=== PATIENT | female | born 1995 | race Two or more races ===

== ENCOUNTER 2017-04-09 21:03 | Outpatient (CLI) | payer OTHER | END 2017-04-09 21:04 | disposition critical access hospital (66) | LOC: EMS 21:03 | PROVIDERS: ATTEND Surgery | DX: R56.9 Unspecified convulsions (principal) ==

== ENCOUNTER 2017-04-09 21:26 | Emergency (ER) | payer OTHER ==
[2017-04-09 22:15] LABS: MUDS CUTOFF CONCENTRATIONS CUTOFF CONC BELOW:
[2017-04-09 22:17] LABS: BILIRUBIN,URINE NEGATIVE (NEGATIVE); GLUCOSE, URINE (UA) NEGATIVE (NEGATIVE); KETONES,URINE (UA) NEGATIVE (NEGATIVE); LEUKOCYTE ESTERASE, URINE NEGATIVE (NEGATIVE); NITRITE,URINE NEGATIVE (NEGATIVE); OCCULT BLOOD,URINE NEGATIVE (NEGATIVE); PROTEIN,URINE NEGATIVE (NEGATIVE); UROBILINOGEN,URINE 0.2 (NORMAL) E.U./dL (NORMAL)
[2017-04-09 22:21] LABS: CLARITY,URINE CLEAR (CLEAR); HCG UR QUAL NEGATIVE
[2017-04-09 22:29] LABS: AMPHETAMINE SCREEN,URINE POSITIVE (NEGATIVE); BENZODIAZEPINES SCREEN, URINE NEGATIVE (NEGATIVE); COCAINE SCREEN URINE NEGATIVE (NEGATIVE); METHADONE SCREEN, URINE NEGATIVE (NEGATIVE); METHAMPHETAMINES SCREEN, URINE NEGATIVE (NEGATIVE); OPIATE SCREEN, URINE NEGATIVE (NEGATIVE); OXYCODONE SCREEN, URINE NEGATIVE (NEGATIVE); PROPOXYPHENE SCREEN, URINE NEGATIVE (NEGATIVE); TRICYCLIC ANTIDEPRESSANT,URINE NEGATIVE (NEGATIVE)
[2017-04-09 22:42] LABS: BASOPHILS # (AUTO) 0.1 10^3/uL (0.0-0.1); BASOPHILS % (AUTO) 0.7 %; EOSINOPHILS # (AUTO) 0.1 10^3/uL (0.0-0.7); EOSINOPHILS % (AUTO) 1.5 %; HGB - HEMOGLOBIN 12.4 g/dL (12.0-16.0); LYMPHOCYTES # (AUTO) 2.9 10^3/uL (1.5-3.5); LYMPHOCYTES % (AUTO) 32.7 %; MEAN CORPUSCULAR HEMOGLOBIN 27.4 pg (27.0-31.0); MEAN CORPUSCULAR HGB CONC 32.1 g/dL (32.0-36.0); MEAN CORPUSCULAR VOLUME 85.1 fL (81.0-99.0); MEAN PLATELET VOLUME 9.6 fL (7.9-10.8); MONOCYTES # (AUTO) 0.6 10^3/uL (0.0-1.0); MONOCYTES % (AUTO) 6.4 %; NEUTROPHILS # (AUTO) 5.3 10^3/uL (1.5-6.6); NEUTROPHILS % (AUTO) 58.7 %; PLT - PLATELET COUNT 279 10^3/uL (130-450); RED BLOOD COUNT 4.52 10^6/uL (4.20-5.40); RED CELL DISTRIBUTION WIDTH 15.4 % (12.0-15.0)
[2017-04-09 22:56] LABS: ALBUMIN 4.8 g/dL (3.2-5.5); ALBUMIN/GLOBULIN RATIO 1.2 (1.0-2.2); BILIRUBIN,TOTAL 0.5 mg/dL (0.2-1.0); CALCIUM 9.6 mg/dL (8.5-10.3); CREATININE 0.7 mg/dL (0.4-1.0); TOTAL PROTEIN 8.8 g/dL (6.7-8.2)
[2017-04-10] MEDS ORDERED: PHENYTOIN INJ 1,000 MG in SODIUM CHLORIDE 0.9% 100ML 100 ML IV STA (00:07)
[2017-04-10] MEDS ORDERED: ONDANSETRON ODT 4 MG TABLET TL STA (01:04)
[2017-04-10] MEDS ORDERED: PHENYTOIN ER 100 MG CAPSULE PO STA ×2 (01:04→01:15)
--- NOTE | 2017-04-10 01:16 | ED Physician Documentation ---
PD HPI SEIZURE - Stated complaint Stated Complaint: SEIZURES - Chief complaint Chief Complaint: Neuro - History obtained from History obtained from: Patient, EMS - History of Present Illness Timing - onset: Today Witnessed: Witnessed, Unwitnessed Number of seizures: Multiple Description of seizure activity: Generalized, Tonic clonic Injury during seizure: No: Head injury, Bit tongue Associated symptoms: No: Headache, Vision changes Contributing factors: Off meds Similar symptoms before: Work up / diagnostics, Treatment Recently seen: Not recently seen - Additional information Additional information: Patient is a 22 year old female with a 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 since that time she has been on multiple anti epileptic medications but patient states that none of them really worked for her. Patient states that she had been working with neurologists in [place] and recently [place], but she just moved up here and does not have a doctor or neurologist. Patient states that she stopped taking her meds during her and has not been on them for a long time. Patient states that today she has had three different seizures. patient states that they were only witnessed by her children so she doesn't know exactly how long the lasted or if they were generalized or focal. patient states that she just woke up each time a bit confused. patient states that she has been under a lot of stress lately and that her recently asked for a divorce. Review of Systems Constitutional: denies: Fever, Chills Eyes: denies: Decreased vision, Photophobia Ears: denies: Ear pain, Drainage/discharge Throat: denies: Dental pain / toothache, Oral lesions / sores Cardiac: denies: Chest pain / pressure Respiratory: reports: Reviewed and negative GI: reports: Reviewed and negative : reports: Reviewed and negative Skin: denies: Abrasion (s), Laceration (s), Bite / sting Musculoskeletal: denies: Neck pain, Back pain, Extremity pain Neurologic: reports: Seizure Psychiatric: reports: Reviewed and negative Endocrine: reports: Reviewed and negative PD PAST MEDICAL HISTORY - Past Medical History Past Medical History: Yes Neuro: Headache/migraine, Seizure disorder 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: Ovarian cysts, Miscarriage(s) Psych: Depression, Anxiety, Bipolar disorder, Panic attacks, ADD/ADHD, Obsessive compulsive disorder, Eating disorder - Past Surgical History Past Surgical History: Yes Neuro: Other - Present Medications Home Medications: Ambulatory Orders Medication Instructions Recorded Confirmed Dextroamphetamine/Amphetamine 30 mg PO DAILY PM 04/09/17 04/09/17 [Adderall Xr 30 mg Capsule] Ibuprofen 800 mg PO PRN 04/09/17 Phenytoin [Dilantin] 100 mg PO TID #30 capsule 04/10/17 - Allergies Allergies/Adverse Reactions: Allergies Allergy/AdvReac Type Severity Reaction Status Date / Time tramadol Allergy Severe Anaphylaxis Verified 04/09/17 21:51 ketorolac [From Toradol] Allergy Intermediate Hives Verified 04/09/17 21:53 trazodone [From Desyrel] Allergy Intermediate Hives Verified 04/09/17 21:53 - Social History Does the pt smoke?: No Smoking Status: Never smoker Does the pt drink ETOH?: Yes ETOH Use: Wine Does the pt have substance abuse?: No PD ED PE NORMAL - Vitals Vital signs reviewed: Yes - General General: Alert and oriented X 3, No acute distress, Well developed/nourished - HEENT HEENT: Atraumatic, PERRL, Moist mucous membranes - Neck Neck: Supple, no meningeal sign - Cardiac Cardiac: RRR, No murmur - Respiratory Respiratory: No respiratory distress - Abdomen Abdomen: Soft, Non tender, Non distended - Derm Derm: Normal color, Warm and dry, No rash - Extremities Extremities: No deformity, Normal ROM s pain, No edema, No calf tenderness / cord - Neuro Neuro: Alert and oriented X 3, No motor deficit, No sensory deficit, Normal speech Eye Opening: Spontaneous Motor: Obeys Commands Verbal: Oriented GCS Score: 15 - Psych Psych: Normal mood Results - Vitals Vitals: Vital Signs - 24 hr 04/09/17 04/09/17 04/10/17 21:44 23:10 00:34 Temperature 36.2 C L Heart Rate 68 74 63 Respiratory 16 16 16 Rate Blood Pressure 116/73 119/79 123/73 O2 Saturation 100 100 100 04/10/17 04/10/17 01:00 01:55 Temperature 36.5 C Heart Rate 76 64 Respiratory 16 16 Rate Blood Pressure 126/87 H 135/73 H O2 Saturation 100 99 Oxygen O2 Source Room air - Labs Labs: Laboratory Tests 04/09/17 04/09/17 04/09/17 22:12 22:12 22:28 WBC 9.0 RBC 4.52 Hgb 12.4 Hct 38.5 MCV 85.1 MCH 27.4 MCHC 32.1 RDW 15.4 H Plt Count 279 MPV 9.6 Neut # 5.3 Lymph # 2.9 [place] # 0.6 Eos # 0.1 Baso # 0.1 Absolute Nucleated RBC 0.00 Nucleated RBC % 0.0 Sodium Potassium Chloride Carbon Dioxide Anion Gap BUN Creatinine Estimated GFR (MDRD) Glucose Calcium Total Bilirubin AST ALT Alkaline Phosphatase Total Protein Albumin Globulin Albumin/Globulin Ratio Lipase Urine Color YELLOW Urine Clarity CLEAR Urine pH 6.0 Ur Specific [place] 1.025 Urine Protein NEGATIVE Urine Glucose (UA) NEGATIVE Urine Ketones NEGATIVE Urine Occult Blood NEGATIVE Urine Nitrite NEGATIVE Urine Bilirubin NEGATIVE Urine Urobilinogen 0.2 (NORMAL) Ur Leukocyte Esterase NEGATIVE Ur Microscopic Review NOT INDICATED Urine Culture Comments NOT INDICATED Urine HCG, Qual NEGATIVE Urine Opiates Screen NEGATIVE Ur Oxycodone Screen NEGATIVE Urine Methadone Screen NEGATIVE Ur Propoxyphene Screen NEGATIVE Ur Barbiturates Screen NEGATIVE Ur Tricyclics Screen NEGATIVE Ur Phencyclidine Scrn NEGATIVE Ur Amphetamine Screen POSITIVE H U Methamphetamines Scrn NEGATIVE U Benzodiazepines Scrn NEGATIVE Urine Cocaine Screen NEGATIVE U Cannabinoids Screen NEGATIVE 04/09/17 22:28 WBC RBC Hgb Hct MCV MCH MCHC RDW Plt Count MPV Neut # Lymph # [place] # Eos # Baso # Absolute Nucleated RBC Nucleated RBC % Sodium 140 Potassium 3.7 Chloride 104 Carbon Dioxide 26 Anion Gap 10.0 BUN 11 Creatinine 0.7 Estimated GFR (MDRD) 103 Glucose 82 Calcium 9.6 Total Bilirubin 0.5 AST 25 ALT 27 Alkaline Phosphatase 64 Total Protein 8.8 H Albumin 4.8 Globulin 4.0 Albumin/Globulin Ratio 1.2 Lipase 27 Urine Color Urine Clarity Urine pH Ur Specific [place] Urine Protein Urine Glucose (UA) Urine Ketones Urine Occult Blood Urine Nitrite Urine Bilirubin Urine Urobilinogen Ur Leukocyte Esterase Ur Microscopic Review Urine Culture Comments Urine HCG, Qual Urine Opiates Screen Ur Oxycodone Screen Urine Methadone Screen Ur Propoxyphene Screen Ur Barbiturates Screen Ur Tricyclics Screen Ur Phencyclidine Scrn Ur Amphetamine Screen U Methamphetamines Scrn U Benzodiazepines Scrn Urine Cocaine Screen U Cannabinoids Screen PD MEDICAL DECISION MAKING - ED course Complexity details: reviewed old records, reviewed results, re-evaluated patient , considered differential, d/w patient, d/w client service consultant ED course: Patient was seen and examined at bedside. patient was well appearing and in no acute distress. labs were drawn and urine was collected. [facility] neurology was contacted. Case was discussed with them. Since patient had had adverse outcomes with keppra it was decided to load the patient with dilantin and start the patient on daily meds until she could follow up with her pmd/neurologist. IV bolus was started but patient stated it was uncomfortable so it was switched to oral, in two split doses of 500mg. patient tolerated it well with no vomiting. patient required no further inpatient work up at this time and was stable for discharge with outpatient follow up. Departure - Departure Disposition: Home, Self Care Clinical Impression: Seizure Condition: Good Instructions: ED Seizure Recurrent Follow-Up: epilepsy,clinic [Other] - Within 3 Days Prescriptions: Phenytoin [Dilantin] 100 mg PO TID #30 capsule Comments: Your symptoms today are being caused by a seizure. You have been loaded on dilantin today and will need to take 100mg three times a day. You will need to call your doctor tomorrow to schedule a follow up appointment with neurologist out here in [place]. You will need to have your dilantin level checked within three weeks. It might not be the best medicine for you so it is imperative that you seek follow up care. The number is listed for the epilepsy clinic, but you should call your doctor on tuesday to schedule a follow up appointment. You may return to the emergency department at any time for new, worsening or uncontrollable symptoms. Discharge Date/Time: 04/10/17 01:57
[2017-04-10 02:49] VITALS: BP 135/73
== END 2017-04-10 01:57 | disposition home or self-care (01) ==
LOC: ED 21:26
DX: G40.909 Epilepsy, unspecified, not intractable, without status epilepticus (principal)
CPT/HCPCS: 36415; 80053; 80306; 81003; 81025; 83690; 85025; 96365; 99284; A9270; Q0162; 81001; 87086

== ENCOUNTER 2017-10-11 14:40 | Emergency (ER) | payer OTHER ==
[2017-10-11 15:19] LABS: BILIRUBIN,URINE NEGATIVE (NEGATIVE); GLUCOSE, URINE (UA) NEGATIVE (NEGATIVE); KETONES,URINE (UA) NEGATIVE (NEGATIVE); LEUKOCYTE ESTERASE, URINE NEGATIVE (NEGATIVE); NITRITE,URINE NEGATIVE (NEGATIVE); OCCULT BLOOD,URINE NEGATIVE (NEGATIVE); PROTEIN,URINE NEGATIVE (NEGATIVE); UROBILINOGEN,URINE 0.2 (NORMAL) E.U./dL (NORMAL)
[2017-10-11 15:24] LABS: CLARITY,URINE CLEAR (CLEAR)
[2017-10-11 15:25] LABS: HCG UR QUAL POSITIVE
--- NOTE | 2017-10-11 17:04 | ED Physician Documentation ---
PD HPI BACK PAIN - Stated complaint Stated Complaint: BACK PX - Chief complaint Chief Complaint: Back Pain - History obtained from History obtained from: Patient - History of Present Illness Timing - duration: Days Timing - details: Gradual onset, Still present, Waxing and waning Location: Lower, Right, Left Quality: Pain, Spasm, Aching Associated symptoms: No: Fever, Weakness, Numbness, Incontinent of urine Improves with: Rest, Position Worsened by: Movement, Palpation Contributing factors: No: Twisting, Trauma Similar symptoms before: Has not had sx before Recently seen: Clinic (yeserday wtih U/S done) Review of Systems Constitutional: denies: Fever, Myalgias Nose: denies: Rhinorrhea / runny nose, Congestion Throat: denies: Sore throat Cardiac: denies: Chest pain / pressure Respiratory: denies: Dyspnea, Cough GI: reports: Abdominal Pain, Nausea. 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(s) Psych: Depression, Anxiety, Bipolar disorder, Panic attacks, ADD/ADHD, Obsessive compulsive disorder, Eating disorder - Past Surgical History Past Surgical History: Yes Neuro: Other - Present Medications Home Medications: Ambulatory Orders Medication Instructions Recorded Confirmed Dextroamphetamine/Amphetamine 30 mg PO DAILY PM 04/09/17 04/09/17 [Adderall Xr 30 mg Capsule] Ibuprofen 800 mg PO PRN 04/09/17 Cyclobenzaprine HCl 5 mg PO TID PRN #15 tablet 10/11/17 HYDROcod/ACETAM 5/325 [[place] 5/325] 1 tab PO Q6H PRN #15 tablet 10/11/17 Naproxen 375 mg PO BID #20 tablet 10/11/17 Ondansetron HCl [Zofran] 4 mg PO Q6H PRN #20 tablet 10/11/17 - Allergies Allergies/Adverse Reactions: Allergies Allergy/AdvReac Type Severity Reaction Status Date / Time tramadol Allergy Severe Anaphylaxis Verified 04/21/17 11:35 ketorolac [From Toradol] Allergy Intermediate Hives Verified 04/21/17 11:35 trazodone [From Desyrel] Allergy Intermediate Hives Verified 04/21/17 11:35 - Social History Does the pt smoke?: No Smoking Status: Never smoker Does the pt drink ETOH?: Yes Does the pt have substance abuse?: No - Immunizations Immunizations are current?: Yes - POLST Patient has POLST: No PD ED PE NORMAL - Vitals Vital signs reviewed: Yes - General General: Alert and oriented X 3, No acute distress, Well developed/nourished - HEENT HEENT: Pharynx benign - Neck Neck: Supple, no meningeal sign, No adenopathy - Cardiac Cardiac: RRR, No murmur - Respiratory Respiratory: Clear bilaterally - Abdomen Abdomen: Normal bowel sounds, Soft, Non tender, Non distended, Other (patient had had U/S just yesterday in Clinic so known IUP, so deferred it here. ) - Back Back: No CVA TTP (tender in lateral muscles to side of lower lumbar. ), No spinal TTP - Derm Derm: Normal color, Warm and dry - Extremities Extremities: No deformity, No tenderness to palpate, No edema, No calf tenderness / cord - Neuro Neuro: Alert and oriented X 3, No motor deficit, Normal speech Results - Vitals Vitals: Oxygen O2 Source Room air - Labs Labs: Laboratory Tests 10/11/17 10/11/17 15:12 15:12 Urine Color YELLOW Urine Clarity CLEAR Urine pH 7.0 Ur Specific [place] 1.020 1.020 Urine Protein NEGATIVE Urine Glucose (UA) NEGATIVE Urine Ketones NEGATIVE Urine Occult Blood NEGATIVE Urine Nitrite NEGATIVE Urine Bilirubin NEGATIVE Urine Urobilinogen 0.2 (NORMAL) Ur Leukocyte Esterase NEGATIVE Ur Microscopic Review NOT INDICATED Urine Culture Comments NOT INDICATED Urine HCG, Qual POSITIVE PD MEDICAL DECISION MAKING - ED course Complexity details: reviewed results (she had had recent U/S showing IUP, so deferred one today. ), considered differential (seems likely to be musculoskeletal pain. Does not seem kidney stone in character. ), d/w patient - Sepsis Event Vital Signs: Oxygen O2 Source Room air Departure - Departure Disposition: 01 Home, Self Care Clinical Impression: Low back pain Qualifiers: Chronicity: acute Back pain laterality: left Sciatica presence: without sciatica Qualified Code(s): M54.5 - Low back pain Condition: Stable Record reviewed to determine appropriate education?: Yes Instructions: ED Flank Pain Uncertain Cause Follow-Up: DEV LI PA-C [Primary Care Provider] - Prescriptions: Cyclobenzaprine HCl 5 mg PO TID PRN #15 tablet PRN Reason: Spasms HYDROcod/ACETAM 5/325 [[place] 5/325] 1 tab PO Q6H PRN #15 tablet PRN Reason: Pain Naproxen 375 mg PO BID #20 tablet Ondansetron HCl [Zofran] 4 mg PO Q6H PRN #20 tablet PRN Reason: Nausea / Vomiting Comments: There is no blood in the urine so less likely to be a kidney stone though could possibly be one without hematuria. This would be treated with anti- inflammatories and pain medicine and see if it would improve. Alternatively muscular back pain is more likely and would be treated similarly with anti- inflammatories muscle relaxants and pain medicines. The ones chosen are okay in . You can add Tylenol and if needed for pain. Use ondansetron if needed for nausea. Follow-up with your primary in the next 2-3 days if not improved during that time. Discharge Date/Time: 10/11/17 18:25
[2017-10-11 18:47] VITALS: BP 110/62
== END 2017-10-11 18:25 | disposition home or self-care (01) ==
LOC: ED 14:40
DX: M54.5 Low back pain (principal)
CPT/HCPCS: 81001; 81003; 81025; 87086; 99283

== ENCOUNTER 2017-10-19 10:30 | Emergency (ER) | payer OTHER ==
--- NOTE | 2017-10-19 12:28 | ED Physician Documentation ---
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 patient states that she ran out of her medications yesterday and she has been moving so only slept a few hours over the last few days. patient had two seizures lasting 1 minute today. [place] 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) Psych: Depression, Anxiety, Bipolar disorder, Panic attacks, ADD/ADHD, Obsessive compulsive disorder, Eating disorder - Past Surgical History Past Surgical History: Yes Neuro: Other - Present Medications Home Medications: Ambulatory Orders Medication Instructions Recorded Confirmed Dextroamphetamine/Amphetamine 30 mg PO DAILY PM 04/09/17 04/09/17 [Adderall Xr 30 mg Capsule] Ibuprofen 800 mg PO PRN 04/09/17 Cyclobenzaprine HCl 5 mg PO TID PRN #15 tablet 10/11/17 HYDROcod/ACETAM 5/325 [[place] 5/325] 1 tab PO Q6H PRN #15 tablet 10/11/17 Naproxen 375 mg PO BID #20 tablet 10/11/17 Ondansetron HCl [Zofran] 4 mg PO Q6H PRN #20 tablet 10/11/17 - Allergies Allergies/Adverse Reactions: Allergies Allergy/AdvReac Type Severity Reaction Status Date / Time tramadol Allergy Severe Anaphylaxis Verified 10/19/17 10:36 ketorolac [From Toradol] Allergy Intermediate Hives Verified 10/19/17 10:36 trazodone [From Desyrel] Allergy Intermediate Hives Verified 10/19/17 10:36 - Social History Does the pt smoke?: No Smoking Status: Never smoker Does the pt drink ETOH?: Yes Does the pt have substance abuse?: No - Immunizations Immunizations are current?: Yes - POLST Patient has POLST: No PD ED PE NORMAL - Vitals Vital signs reviewed: Yes - General General: Alert and oriented X 3, No acute distress - HEENT HEENT: Atraumatic, PERRL, Moist mucous membranes - Neck Neck: Supple, no meningeal sign - Cardiac Cardiac: RRR - Respiratory Respiratory: No respiratory distress - Abdomen Abdomen: Soft - Derm Derm: Normal color, Warm and dry - Extremities Extremities: No deformity - Neuro Neuro: Alert and oriented X 3 Results - Vitals Vitals: Vital Signs - 24 hr 10/19/17 10:33 Temperature 36.2 C L Heart Rate 84 Respiratory 18 Rate Blood Pressure 119/62 O2 Saturation 98 Oxygen O2 Source Room air Procedures - Bedside sono Bedside sono by EMP: melva swain PD MEDICAL DECISION MAKING - ED course Complexity details: reviewed old records, reviewed results, re-evaluated patient , d/w patient ED course: Patient was seen and examined at bedside. Patient was well appearing in no distress. Patient stated that she did not want labs and patient had two significant reasons for seizures. bedside ultrasound showed no abnormalities. patient received a call from her physician and her prescription was waiting at the pharmacy. Patient required no further work up and was stable for discharge with outpatient follow up. - Sepsis Event Vital Signs: Vital Signs - 24 hr 10/19/17 10:33 Temperature 36.2 C L Heart Rate 84 Respiratory 18 Rate Blood Pressure 119/62 O2 Saturation 98 Oxygen O2 Source Room air Departure - Departure Disposition: 01 Home, Self Care Clinical Impression: Seizure Condition: Good Instructions: ED Seizure Recurrent Follow-Up: DEV LI PA-C [Primary Care Provider] - Within 3 Days Comments: It is important that you stay compliant with your medications and get plenty of sleep as those are the two biggest triggers for seizures. you may return to the emergency department at any time for new, worsening or uncontrollable symptoms. Forms: Activity restrictions
[2017-10-19 12:49] VITALS: BP 124/73
== END 2017-10-19 12:46 | disposition home or self-care (01) ==
LOC: ED 10:30
DX: O99.350 Diseases of the nervous system complicating pregnancy, unspecified trimester (principal); G40.409 Other generalized epilepsy and epileptic syndromes, not intractable, without status epilepticus; T42.76XA Underdosing of unspecified antiepileptic and sedative-hypnotic drugs, initial encounter; Z91.128 Patient's intentional underdosing of medication regimen for other reason; Z72.820 Sleep deprivation
CPT/HCPCS: 80053; 83690; 83735; 84100; 85025; 99283

== ENCOUNTER 2017-10-26 16:01 | Emergency (ER) | payer OTHER ==
[2017-10-26 17:21] LABS: BILIRUBIN,URINE NEGATIVE (NEGATIVE); GLUCOSE, URINE (UA) NEGATIVE (NEGATIVE); KETONES,URINE (UA) NEGATIVE (NEGATIVE); LEUKOCYTE ESTERASE, URINE NEGATIVE (NEGATIVE); NITRITE,URINE NEGATIVE (NEGATIVE); OCCULT BLOOD,URINE NEGATIVE (NEGATIVE); PROTEIN,URINE NEGATIVE (NEGATIVE); UROBILINOGEN,URINE 0.2 (NORMAL) E.U./dL (NORMAL)
[2017-10-26 17:24] LABS: CLARITY,URINE CLEAR (CLEAR)
--- NOTE | 2017-10-26 17:31 | ED Physician Documentation ---
History of Present Illness - Stated complaint Stated Complaint: BACK/ABD PX/8 WKS PREG - Chief complaint Chief Complaint: Abd Pain - History obtained from History obtained from: Patient - Additonal information Additional information: 22-year-old female roughly 8 weeks presents the emergency department with complaints of increasing right sided flank pain. The patient reports that is worse with movement and laying on it. The patient denies dysuria, hematuria, vaginal discharge or vaginal bleeding. Symptoms are described as moderate. No triggering factors. No relieving factors. Review of Systems Constitutional: denies: Fever, Fatigue Eyes: denies: Loss of vision Throat: denies: Sore throat Cardiac: denies: Chest pain / pressure Respiratory: denies: Dyspnea GI: reports: Nausea, Other (Flank pain). 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: Ovarian cysts, Miscarriage(s) Psych: Depression, Anxiety, Bipolar disorder, Panic attacks, ADD/ADHD, Obsessive compulsive disorder, Eating disorder - Past Surgical History Past Surgical History: Yes Neuro: Other - Present Medications Home Medications: Ambulatory Orders Medication Instructions Recorded Confirmed Naproxen 375 mg PO BID #20 tablet 10/11/17 Ondansetron HCl [Zofran] 4 mg PO Q6H PRN #20 tablet 10/11/17 - Allergies Allergies/Adverse Reactions: Allergies Allergy/AdvReac Type Severity Reaction Status Date / Time tramadol Allergy Severe Anaphylaxis Verified 10/19/17 10:36 ketorolac [From Toradol] Allergy Intermediate Hives Verified 10/19/17 10:36 trazodone [From Desyrel] Allergy Intermediate Hives Verified 10/19/17 10:36 brivaracetam Allergy Hives Verified 10/26/17 16:17 - Social History Does the pt smoke?: No Smoking Status: Never smoker Does the pt drink ETOH?: Yes Does the pt have substance abuse?: No - Immunizations Immunizations are current?: Yes - POLST Patient has POLST: No PD ED PE NORMAL - General General: Alert and oriented X 3, No acute distress - HEENT HEENT: Atraumatic, PERRL, EOMI, Ears normal - Cardiac Cardiac: RRR - Respiratory Respiratory: No respiratory distress, Clear bilaterally - Abdomen Abdomen: Normal bowel sounds, Non tender, Non distended, Other (Mild tenderness in the lower flank) - Derm Derm: Normal color - Extremities Extremities: No deformity, Normal ROM s pain, No edema - Neuro Neuro: Alert and oriented X 3, Normal speech - Psych Psych: Normal mood Results - Vitals Vitals: Vital Signs - 24 hr 10/26/17 10/26/17 10/26/17 16:13 19:57 20:56 Temperature 36.4 C L 36.4 C L Heart Rate 74 61 63 Respiratory 16 18 18 Rate Blood Pressure 127/72 92/67 116/58 L O2 Saturation 99 100 97 Oxygen O2 Source Room air - Labs Labs: Laboratory Tests 10/26/17 10/26/17 10/26/17 17:16 17:45 17:45 WBC 7.2 RBC 3.92 L Hgb 11.3 L Hct 34.1 L MCV 87.0 MCH 28.8 MCHC 33.1 RDW 15.6 H Plt Count 220 MPV 9.3 Neut # (Auto) 4.5 Lymph # (Auto) 2.1 [place] # (Auto) 0.5 Eos # (Auto) 0.1 Baso # (Auto) 0.0 Absolute Nucleated RBC 0.01 Nucleated RBC % 0.1 Sodium 133 L Potassium 4.0 Chloride 104 Carbon Dioxide 23 Anion Gap 6.0 BUN 8 Creatinine 0.5 Estimated GFR (MDRD) 152 Glucose 101 H Calcium 9.0 Total Bilirubin 0.7 AST 18 ALT 13 Alkaline Phosphatase 53 Total Protein 7.4 Albumin 3.8 Globulin 3.6 Albumin/Globulin Ratio 1.1 Lipase 23 HCG, Quant Urine Color YELLOW Urine Clarity CLEAR Urine pH 6.0 Ur Specific [place] 1.025 Urine Protein NEGATIVE Urine Glucose (UA) NEGATIVE Urine Ketones NEGATIVE Urine Occult Blood NEGATIVE Urine Nitrite NEGATIVE Urine Bilirubin NEGATIVE Urine Urobilinogen 0.2 (NORMAL) Ur Leukocyte Esterase NEGATIVE Ur Microscopic Review NOT INDICATED Urine Culture Comments NOT INDICATED 10/26/17 17:45 WBC RBC Hgb Hct MCV MCH MCHC RDW Plt Count MPV Neut # (Auto) Lymph # (Auto) [place] # (Auto) Eos # (Auto) Baso # (Auto) Absolute Nucleated RBC Nucleated RBC % Sodium Potassium Chloride Carbon Dioxide Anion Gap BUN Creatinine Estimated GFR (MDRD) Glucose Calcium Total Bilirubin AST ALT Alkaline Phosphatase Total Protein Albumin Globulin Albumin/Globulin Ratio Lipase HCG, Quant 650238.00 Urine Color Urine Clarity Urine pH Ur Specific [place] Urine Protein Urine Glucose (UA) Urine Ketones Urine Occult Blood Urine Nitrite Urine Bilirubin Urine Urobilinogen Ur Leukocyte Esterase Ur Microscopic Review Urine Culture Comments - Rads (name of study) OB ultrasound Radiology: Final report received, See rad report (Intrauterine ) Limited right upper quadrant ultrasound Radiology: Final report received, See rad report (No hydronephrosis, no cholecystitis) PD MEDICAL DECISION MAKING - ED course ED course: The patient's workup does not reveal clear etiology for the source of her symptoms. The patient appears appropriate for discharge home and further workup as an outpatient. I discussed with her the findings and plan and the patient understands and agrees. I discussed warning signs for decompensation and recommended returning to the emergency department immediately for worsening or any concerns. - Sepsis Event Vital Signs: Vital Signs - 24 hr 10/26/17 10/26/17 10/26/17 16:13 19:57 20:56 Temperature 36.4 C L 36.4 C L Heart Rate 74 61 63 Respiratory 16 18 18 Rate Blood Pressure 127/72 92/67 116/58 L O2 Saturation 99 100 97 Oxygen O2 Source Room air Departure - Departure Disposition: 01 Home, Self Care Clinical Impression: Flank pain, acute Qualifiers: Weeks of gestation: 8 weeks Qualified Code(s): Z3A.08 - 8 weeks gestation of Condition: Good Instructions: ED Flank Pain Uncertain Cause Follow-Up: DEV LI PA-C [Primary Care Provider] - Within 1 week Comments: Please return to the emergency department for worsening symptoms or any concerns Discharge Date/Time: 10/26/17 20:57
[2017-10-26] MEDS ORDERED: ACETAMINOPHEN 500 MG TABLET PO STA (17:40)
[2017-10-26] MEDS ORDERED: SODIUM CHLORIDE 0.9% 1,000 ML IV ONE (17:40)
[2017-10-26 17:59] LABS: BASOPHILS % (AUTO) 0.5 %; EOSINOPHILS # (AUTO) 0.1 10^3/uL (0.0-0.7); EOSINOPHILS % (AUTO) 1.7 %; HGB - HEMOGLOBIN 11.3 g/dL (12.0-16.0); LYMPHOCYTES # (AUTO) 2.1 10^3/uL (1.5-3.5); LYMPHOCYTES % (AUTO) 29.2 %; MEAN CORPUSCULAR HEMOGLOBIN 28.8 pg (27.0-31.0); MEAN CORPUSCULAR HGB CONC 33.1 g/dL (32.0-36.0); MEAN PLATELET VOLUME 9.3 fL (7.9-10.8); MONOCYTES # (AUTO) 0.5 10^3/uL (0.0-1.0); MONOCYTES % (AUTO) 6.6 %; NEUTROPHILS # (AUTO) 4.5 10^3/uL (1.5-6.6); PLT - PLATELET COUNT 220 10^3/uL (130-450); RED BLOOD COUNT 3.92 10^6/uL (4.20-5.40); RED CELL DISTRIBUTION WIDTH 15.6 % (12.0-15.0); WHITE BLOOD COUNT 7.2 x10^3/uL (4.8-10.8)
[2017-10-26 18:11] LABS: ALBUMIN 3.8 g/dL (3.2-5.5); ALBUMIN/GLOBULIN RATIO 1.1 (1.0-2.2); BILIRUBIN,TOTAL 0.7 mg/dL (0.2-1.0); CREATININE 0.5 mg/dL (0.4-1.0); TOTAL PROTEIN 7.4 g/dL (6.7-8.2)
--- NOTE | 2017-10-26 20:17 | Ultrasound Report ---
Procedure Date: 10/26/2017 Accession Number: [id number] / [id number] Procedure: US - Abdomen Limited CPT Code: FULL RESULT: EXAM: ABDOMEN ULTRASOUND LIMITED, RUQ EXAM DATE: 10/26/2017 07:05 PM. CLINICAL HISTORY: Right flank pain. COMPARISON: None. TECHNIQUE: Real-time scanning was performed with static images obtained. FINDINGS: Liver: Uniform increased echogenicity without focal lesions. 17.7 cm. Main portal vein flow: Hepatopetal. Gallbladder: Mildly contracted. Patient ate 3 hours ago. No focal tenderness. Gallbladder wall measures 1.9 mm. No stones nor sludge. No pericholecystic fluid. Biliary System: CBD measures 4.4 mm. No intrahepatic or extrahepatic ductal dilatation. Other: Normal right kidney. IMPRESSION: 1. Fatty liver. 2. Normal right kidney. 3. No cholelithiasis nor cholecystitis. RADIA
--- NOTE | 2017-10-26 20:23 | Ultrasound Report ---
Procedure Date: 10/26/2017 Accession Number: [id number] / [id number] Procedure: US - OB Transvaginal CPT Code: FULL RESULT: EXAM: FIRST TRIMESTER OBSTETRIC ULTRASOUND (Less than 11 weeks) EXAM DATE: 10/26/2017 07:26 PM. CLINICAL HISTORY: Beta-hCG 170, 925 pelvic pain. LMP: Unknown. COMPARISONS: None. TECHNIQUE: Transvaginal ultrasound examination with static image documentation. Please note that transabdominal scans not performed as per request. CLINICAL DATES: Unknown. ASSESSMENT: Gestational Sac: Single intrauterine. Mean gestational sac diameter: 42.0 mm = 9 weeks 4 days. Embryo: CRL (crown-rump length) 22.2 mm = 8 weeks 6 days. THADDEUS 06/01/2018. Cardiac activity: 174 beats per minute. Yolk sac: 3.1 mm. Amniotic fluid: Not accurately assessed at this gestational age. Early placenta: Not visible at this gestational age. Other: No perigestational fluid collection demonstrated. MATERNAL STRUCTURES: Uterus: Anteverted. Unremarkable. Cervix: Long and closed. Right Ovary/Adnexa: Not seen. Left Ovary/Adnexa: Not seen. Free Fluid: None. Other: None. IMPRESSION: 1. Single viable intrauterine at EGA 8 weeks 6 days with THADDEUS 06/01/2018 based on crown-rump length. 2. Neither maternal ovary visualized. If there is concern regarding ovarian torsion, transabdominal scans should be considered. RADIA
[2017-10-26 20:57] VITALS: BP 116/58
== END 2017-10-26 20:57 | disposition home or self-care (01) ==
LOC: ED 16:01
DX: O26.891 Other specified pregnancy related conditions, first trimester (principal); R10.9 Unspecified abdominal pain; Z3A.08 8 weeks gestation of pregnancy
CPT/HCPCS: 36415; 76705; 76817; 80053; 81003; 83690; 84702; 85025; 96360; 96361; 99283; A9270; 81001; 87086

== ENCOUNTER 2017-11-02 17:12 | Emergency (ER) | payer OTHER ==
[2017-11-02 19:56] LABS: BASOPHILS % (AUTO) 0.4 %; EOSINOPHILS # (AUTO) 0.2 10^3/uL (0.0-0.7); EOSINOPHILS % (AUTO) 1.8 %; HGB - HEMOGLOBIN 11.5 g/dL (12.0-16.0); LYMPHOCYTES # (AUTO) 2.9 10^3/uL (1.5-3.5); LYMPHOCYTES % (AUTO) 32.5 %; MEAN CORPUSCULAR HEMOGLOBIN 29.1 pg (27.0-31.0); MEAN CORPUSCULAR HGB CONC 33.5 g/dL (32.0-36.0); MEAN CORPUSCULAR VOLUME 86.6 fL (81.0-99.0); MONOCYTES # (AUTO) 0.5 10^3/uL (0.0-1.0); MONOCYTES % (AUTO) 5.5 %; NEUTROPHILS # (AUTO) 5.3 10^3/uL (1.5-6.6); NEUTROPHILS % (AUTO) 59.8 %; PLT - PLATELET COUNT 247 10^3/uL (130-450); RED BLOOD COUNT 3.97 10^6/uL (4.20-5.40); RED CELL DISTRIBUTION WIDTH 15.6 % (12.0-15.0); WHITE BLOOD COUNT 8.9 x10^3/uL (4.8-10.8)
[2017-11-02] MEDS ORDERED: SODIUM CHLORIDE 0.9% 1,000 ML IV ONE (20:01)
[2017-11-02] MEDS ORDERED: PROMETHAZINE INJ 25 MG in SODIUM CHLORIDE 0.9% 50 ML IV STA (20:01)
--- NOTE | 2017-11-02 20:04 | ED Physician Documentation ---
History of Present Illness - Stated complaint Stated Complaint: 10 WKS/SOA/VOM - Chief complaint Chief Complaint: General - History obtained from History obtained from: Patient, Family - History of Present Illness Timing: Last night Pain level max: 0 Pain level now: 0 Improved by: zofran Worsened by: eating, drinking - Additonal information Additional information: Patient is a 22-year-old female, 5 para 0. She complains of vomiting since last night. She is seen at [facility] in [place] for her . Is taking Zofran at home but is continuing to vomit. Review of Systems Ten Systems: 10 systems reviewed and negative Constitutional: denies: Fever, Chills, Myalgias Ears: denies: Ear pain Nose: denies: Rhinorrhea / runny nose, Congestion Cardiac: denies: Chest pain / pressure Respiratory: denies: Cough GI: reports: Nausea, Vomiting. 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) Psych: Depression, Anxiety, Bipolar disorder, Panic attacks, ADD/ADHD, Obsessive compulsive disorder, Eating disorder - Past Surgical History Past Surgical History: Yes Neuro: Other - Present Medications Home Medications: Ambulatory Orders Medication Instructions Recorded Confirmed Naproxen 375 mg PO BID #20 tablet 10/11/17 Ondansetron HCl [Zofran] 4 mg PO Q6H PRN #20 tablet 10/11/17 Promethazine [Phenergan] 25 mg PO Q6H PRN #10 tab 11/02/17 - Allergies Allergies/Adverse Reactions: Allergies Allergy/AdvReac Type Severity Reaction Status Date / Time tramadol Allergy Severe Anaphylaxis Verified 11/02/17 17:41 ketorolac [From Toradol] Allergy Intermediate Hives Verified 11/02/17 17:41 trazodone [From Desyrel] Allergy Intermediate Hives Verified 11/02/17 17:41 brivaracetam Allergy Hives Verified 11/02/17 17:41 - Social History Does the pt smoke?: No Smoking Status: Never smoker Does the pt drink ETOH?: Yes Does the pt have substance abuse?: No - Immunizations Immunizations are current?: Yes - POLST Patient has POLST: No PD ED PE NORMAL - Vitals Vital signs reviewed: Yes - General General: Alert and oriented X 3, No acute distress - HEENT HEENT: Moist mucous membranes - Neck Neck: Supple, no meningeal sign - Cardiac Cardiac: RRR, Strong equal pulses - Respiratory Respiratory: No respiratory distress, Clear bilaterally - Abdomen Abdomen: Soft, Non tender, Non distended - Derm Derm: Warm and dry - Extremities Extremities: No edema - Neuro Neuro: Alert and oriented X 3 - Psych Psych: Normal mood, Normal affect Results - Vitals Vitals: Vital Signs - 24 hr 11/02/17 11/02/17 11/02/17 17:35 19:45 20:44 Temperature 36.4 C L Heart Rate 88 80 68 Respiratory 16 16 6 L Rate Blood Pressure 133/66 H 127/71 118/75 O2 Saturation 99 100 100 11/02/17 21:41 Temperature Heart Rate 67 Respiratory 16 Rate Blood Pressure 119/56 L O2 Saturation 100 Oxygen O2 Source Room air - Labs Labs: Laboratory Tests 11/02/17 11/02/17 11/02/17 19:50 19:50 21:10 WBC 8.9 RBC 3.97 L Hgb 11.5 L Hct 34.4 L MCV 86.6 MCH 29.1 MCHC 33.5 RDW 15.6 H Plt Count 247 MPV 9.0 Neut # (Auto) 5.3 Lymph # (Auto) 2.9 [place] # (Auto) 0.5 Eos # (Auto) 0.2 Baso # (Auto) 0.0 Absolute Nucleated RBC 0.00 Nucleated RBC % 0.0 Sodium 137 Potassium 4.0 Chloride 104 Carbon Dioxide 25 Anion Gap 8.0 BUN 7 Creatinine 0.5 Estimated GFR (MDRD) 152 Glucose 94 Calcium 9.4 Total Bilirubin 0.7 AST 18 ALT 13 Alkaline Phosphatase 60 Total Protein 8.1 Albumin 4.2 Globulin 3.9 Albumin/Globulin Ratio 1.1 Lipase 24 Urine Color YELLOW Urine Clarity CLEAR Urine pH 6.0 Ur Specific [place] 1.015 Urine Protein NEGATIVE Urine Glucose (UA) NEGATIVE Urine Ketones NEGATIVE Urine Occult Blood NEGATIVE Urine Nitrite NEGATIVE Urine Bilirubin NEGATIVE Urine Urobilinogen 0.2 (NORMAL) Ur Leukocyte Esterase NEGATIVE Ur Microscopic Review NOT INDICATED Urine Culture Comments NOT INDICATED PD MEDICAL DECISION MAKING - ED course Complexity details: reviewed results, re-evaluated patient, considered differential, d/w patient, d/w family ED course: Patient is a 22-year-old female who is approximately 10 weeks . Bedside ultrasound reveals an intrauterine with a heart rate of approximately 151 bpm. She was given Phenergan, Benadryl and IV fluids here. Tolerating p.o. without difficulty. She has Zofran at home but states that Phenergan has also worked in the past, therefore will prescribe this for home for her. We will have her follow-up with her doctor for further care. She is very well-appearing, nontoxic. Patient counseled regarding signs and symptoms for which I believe and urgent re-evaluation would be necessary. Patient with good understanding of and agreement to plan and is comfortable going home at this time This document was made in part using voice recognition software. While efforts are made to proofread this document, sound alike and grammatical errors may occur. FHR 151 - Sepsis Event Vital Signs: Vital Signs - 24 hr 11/02/17 11/02/17 11/02/17 17:35 19:45 20:44 Temperature 36.4 C L Heart Rate 88 80 68 Respiratory 16 16 6 L Rate Blood Pressure 133/66 H 127/71 118/75 O2 Saturation 99 100 100 11/02/17 21:41 Temperature Heart Rate 67 Respiratory 16 Rate Blood Pressure 119/56 L O2 Saturation 100 Oxygen O2 Source Room air Departure - Departure Disposition: 01 Home, Self Care Clinical Impression: Qualifiers: Weeks of gestation: 10 weeks Qualified Code(s): Z3A.10 - 10 weeks gestation of Vomiting Qualifiers: Vomiting type: unspecified Vomiting Intractability: non-intractable Nausea presence: with nausea Qualified Code(s): R11.2 - Nausea with vomiting, unspecified Condition: Good Instructions: ED Preg Morning Sickness Follow-Up: DEV LI PA-C [Primary Care Provider] - Within 1 week Prescriptions: Promethazine [Phenergan] 25 mg PO Q6H PRN #10 tab PRN Reason: Nausea / Vomiting Comments: Drink plenty of fluids. Return if you worsen. Discharge Date/Time: 11/02/17 22:08
[2017-11-02 20:09] LABS: ALBUMIN 4.2 g/dL (3.2-5.5); ALBUMIN/GLOBULIN RATIO 1.1 (1.0-2.2); BILIRUBIN,TOTAL 0.7 mg/dL (0.2-1.0); CALCIUM 9.4 mg/dL (8.5-10.3); CREATININE 0.5 mg/dL (0.4-1.0); TOTAL PROTEIN 8.1 g/dL (6.7-8.2)
[2017-11-02] MEDS: diphenhydrAMINE INJ 50 MG/ML VIAL IVP STA ×2 (20:39)
[2017-11-02 21:18] LABS: BILIRUBIN,URINE NEGATIVE (NEGATIVE); GLUCOSE, URINE (UA) NEGATIVE (NEGATIVE); KETONES,URINE (UA) NEGATIVE (NEGATIVE); LEUKOCYTE ESTERASE, URINE NEGATIVE (NEGATIVE); NITRITE,URINE NEGATIVE (NEGATIVE); OCCULT BLOOD,URINE NEGATIVE (NEGATIVE); PROTEIN,URINE NEGATIVE (NEGATIVE); UROBILINOGEN,URINE 0.2 (NORMAL) E.U./dL (NORMAL)
[2017-11-02 21:20] LABS: CLARITY,URINE CLEAR (CLEAR)
[2017-11-02 21:42] VITALS: BP 119/56
== END 2017-11-02 22:08 | disposition home or self-care (01) ==
LOC: ED 17:12
DX: O21.9 Vomiting of pregnancy, unspecified (principal); Z3A.10 10 weeks gestation of pregnancy
CPT/HCPCS: 36415; 80053; 81003; 83690; 85025; 96365; 99283; 99284; J1200; J7040; 81001; 87086

== ENCOUNTER 2018-07-10 21:07 | Emergency (ER) | payer OTHER ==
[2018-07-10 21:32] LABS: BILIRUBIN,URINE NEGATIVE (NEGATIVE); GLUCOSE, URINE (UA) NEGATIVE (NEGATIVE); KETONES,URINE (UA) NEGATIVE (NEGATIVE); LEUKOCYTE ESTERASE, URINE NEGATIVE (NEGATIVE); NITRITE,URINE NEGATIVE (NEGATIVE); OCCULT BLOOD,URINE NEGATIVE (NEGATIVE); PH,URINE 7.5 PH (5.0-7.5); PROTEIN,URINE NEGATIVE (NEGATIVE); UROBILINOGEN,URINE 0.2 (NORMAL) E.U./dL (NORMAL)
[2018-07-10 21:35] LABS: CLARITY,URINE CLEAR (CLEAR); HCG UR QUAL NEGATIVE
--- NOTE | 2018-07-10 22:49 | ED Physician Documentation ---
PD HPI ABD PAIN - Stated complaint Stated Complaint: LLQ PX - Chief complaint Chief Complaint: Abd Pain - History obtained from History obtained from: Patient - History of Present Illness Timing - onset: Today, Yesterday Timing - duration: Hours Timing - details: Abrupt onset, Waxing and waning Quality: Cramping, Aching, Pain Location: LLQ Radiation: No: Left flank Improved by: Laying still. No: Eating Worsened by: Moving, Other (intercourse today, movement and palpation). No: Eating, Breathing Associated symptoms: No: Fever, Nausea, Vomiting Recently seen: Clinic (she is 9 weeks post and expecting initial menses this week. 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), Other (she is 8-9 weeks post without complications) Psych: Depression, Anxiety, Bipolar disorder, Panic attacks, ADD/ADHD, Obsessive compulsive disorder, Eating disorder - Past Surgical History Past Surgical History: Yes Neuro: Other - Present Medications Home Medications: Ambulatory Orders Medication Instructions Recorded Confirmed Naproxen 375 mg PO BID #20 tablet 10/11/17 Ondansetron HCl [Zofran] 4 mg PO Q6H PRN #20 tablet 10/11/17 Promethazine [Phenergan] 25 mg PO Q6H PRN #10 tab 11/02/17 Hydrocodone/Acetaminophen [[place]elope 1 each PO Q6H PRN #15 tablet 07/11/18 5-325 Tablet] Naproxen 500 mg PO BID #20 tablet 07/11/18 Ondansetron Odt [Zofran] 4 mg TL Q6H PRN #10 tablet 07/11/18 - Allergies Allergies/Adverse Reactions: Allergies Allergy/AdvReac Type Severity Reaction Status Date / Time tramadol Allergy Severe Anaphylaxis Verified 11/02/17 17:41 ketorolac [From Toradol] Allergy Intermediate Hives Verified 11/02/17 17:41 trazodone [From Desyrel] Allergy Intermediate Hives Verified 11/02/17 17:41 brivaracetam Allergy Hives Verified 11/02/17 17:41 - Social History Does the pt smoke?: No Smoking Status: Never smoker Does the pt drink ETOH?: Yes Does the pt have substance abuse?: No - Immunizations Immunizations are current?: Yes - POLST Patient has POLST: No PD ED PE NORMAL - Vitals Vital signs reviewed: Yes - General General: Alert and oriented X 3, Well developed/nourished - HEENT HEENT: Moist mucous membranes, Pharynx benign - Neck Neck: Supple, no meningeal sign, No adenopathy - Cardiac Cardiac: RRR, No murmur - Respiratory Respiratory: Clear bilaterally - Abdomen Abdomen: Normal bowel sounds, Soft, Non distended, No organomegaly, Other (tender LLQ without guarding nor percussion tenderness) - Female Female : Deferred - Back Back: No CVA TTP - Derm Derm: Normal color, Warm and dry - Extremities Extremities: No deformity, No tenderness to palpate, Normal ROM s pain, No edema, No calf tenderness / cord - Neuro Neuro: Alert and oriented X 3, No motor deficit, Normal speech Results - Vitals Vitals: Vital Signs - 24 hr 07/10/18 07/11/18 07/11/18 21:11 00:38 02:16 Temperature 36.1 C L 36.6 C 36.8 C Heart Rate 68 58 L 63 Respiratory 18 14 18 Rate Blood Pressure 126/71 127/88 H 134/82 H O2 Saturation 99 100 100 Oxygen O2 Source Room air - Labs Labs: Laboratory Tests 07/10/18 21:20 Urine Color YELLOW Urine Clarity CLEAR Urine pH 7.5 Ur Specific [place] 1.015 Urine Protein NEGATIVE Urine Glucose (UA) NEGATIVE Urine Ketones NEGATIVE Urine Occult Blood NEGATIVE Urine Nitrite NEGATIVE Urine Bilirubin NEGATIVE Urine Urobilinogen 0.2 (NORMAL) Ur Leukocyte Esterase NEGATIVE Ur Microscopic Review NOT INDICATED Urine Culture Comments NOT INDICATED Urine HCG, Qual NEGATIVE - Rads (name of study) pelvic U/S Radiology: Prelim report reviewed (normal), See rad report PD MEDICAL DECISION MAKING - ED course Complexity details: reviewed results (normal U/S pelvis.), re-evaluated patient, considered differential, d/w patient Departure - Departure Disposition: Home, Self Care Clinical Impression: Abdominal pain Qualifiers: Abdominal location: left lower quadrant Qualified Code(s): R10.32 - Left lower quadrant pain Condition: Stable Record reviewed to determine appropriate education?: Yes Instructions: Abdominal Pain, ED Abdominal Pain Unkn Cause Follow-Up: Leah Polanco ARNP [Primary Care Provider] - Prescriptions: Hydrocodone/Acetaminophen [Antelope 5-325 Tablet] 1 each PO Q6H PRN #15 tablet PRN Reason: Pain Naproxen 500 mg PO BID #20 tablet Ondansetron Odt [Zofran] 4 mg TL Q6H PRN #10 tablet PRN Reason: Nausea / Vomiting Comments: Your ultrasound showed normal ovary without any signs of cysts nor abnormal blood flow. There is no free fluid in the pelvis to suggest bleeding or ruptured cyst. Your urine appears normal without any signs of infection. There is no blood in there to suggest stone. Presume the pain is from some inflammation around the ovary or some scar tissue. This should taper down and improve over the next several days with anti-inflammatories and add pain medicine if needed. Follow-up with your primary care if not improved over the next few days. Discharge Date/Time: 07/11/18 02:17
[2018-07-10] MEDS ORDERED: HYDROmorphone 1 MG/ML CARPUJECT IVP STA (23:04)
[2018-07-10] MEDS ORDERED: SODIUM CHLORIDE 0.9% 1,000 ML IV ONE (23:04)
[2018-07-10] MEDS ORDERED: ONDANSETRON 4 MG/2 ML VIAL IVP STA (23:04)
--- NOTE | 2018-07-11 00:42 | Ultrasound Report ---
Reason: pelvic pain; left sided Procedure Date: 07/10/2018 Accession Number: [id number] / [id number] Procedure: US - Pelvic w/Transvag+Doppler Ltd CPT Code: FULL RESULT: EXAM: PELVIC ULTRASOUND EXAM DATE: 07/10/2018 11:46 PM. CLINICAL HISTORY: Pelvic pain; left sided. COMPARISON: None. TECHNIQUE: Realtime transabdominal pelvic scan performed to identify the uterus and adnexa and as an overview of other pelvic structures, followed by transvaginal scan to provide greater detail of the uterus and adnexa, with static image documentation. FINDINGS: Uterus: 9.9 x 5.0 x 6.1 cm, volume 160 cc. Anteverted position. Normal overall size and echotexture. Masses: None. Endometrium: 10 mm. Normal. Cervix: Unremarkable. Right Ovary: 3.1 x 1.3 x 1.6 cm, volume 3.3 cc. Normal echotexture and blood flow. Left Ovary: 4 x 2.2 x 2.9 cm, volume 13.3 cc. Normal echotexture and blood flow. Several follicles noted. Free Fluid: None. Other: None. IMPRESSION: Unremarkable pelvic ultrasound. RADIA
[2018-07-11] MEDS ORDERED: ONDANSETRON 4 MG/2 ML VIAL IVP STA (01:17)
[2018-07-11] MEDS ORDERED: HYDROmorphone 1 MG/ML CARPUJECT IVP STA (01:17)
[2018-07-11] MEDS ORDERED: ONDANSETRON ODT 4 MG Prepack 2 TL PRN (01:56)
[2018-07-11] MEDS ORDERED: HYDROcod/ACET 5/325 Prepack 4 PO STA (01:56)
[2018-07-11] MEDS ORDERED: NAPROXEN 250 MG TABLET PO STA (01:57)
[2018-07-11 02:17] VITALS: BP 134/82
== END 2018-07-11 02:17 | disposition home or self-care (01) ==
LOC: ED 21:07
DX: R10.32 Left lower quadrant pain (principal)
CPT/HCPCS: 76830; 76856; 81003; 81025; 93976; 96361; 96374; 96375; 96376; 99283; A9270; J1170; 81001; 87086

== ENCOUNTER 2018-08-16 02:05 | Outpatient (CLI) | payer OTHER | END 2018-08-16 02:06 | disposition critical access hospital (66) | LOC: EMS 02:05 | PROVIDERS: ATTEND Surgery | DX: R07.89 Other chest pain (principal); R51 Headache; H53.133 Sudden visual loss, bilateral; R53.83 Other fatigue; R11.0 Nausea | CPT/HCPCS: A0425; A0427 ==

== ENCOUNTER 2018-08-16 02:25 | Emergency (ER) | payer OTHER ==
--- NOTE | 2018-08-16 02:42 | ED Physician Documentation ---
PD HPI HEADACHE - Stated complaint Stated Complaint: HEADACHE - History obtained from History obtained from: Patient, EMS - History of Present Illness Timing - onset: Yesterday Pain level now: 6 Worst headache ever?: No: Worst headache ever? Location: Right Quality: Throbbing, Aching Associated symptoms: Seizure, Vision changes Improved by: Nothing Worsened by: No: Light, Noise, Moving - Additional information Additional information: Brought in by ambulance. Patient complains of right sided headache. She had been having chest pain since yesterday which was constant and gradually worsening. This evening, while she was having a telephone conversation, the chest pain became severe and suddenly associated with bilateral visual loss which lasted five minutes. her vision completely and spontaneously returned and this coin cided with the resolution of her chest pain. However, she developed a right sided headache which is her chief complaint. She notes increasing seizure activity recently including the most recent seizure which was yesterday, and her prescribing physician is aware of this and recently increased her anti-seizure medication. She has a history of AVM rupture with repair. Review of Systems Constitutional: reports: Reviewed and negative Eyes: reports: Loss of vision Ears: reports: Reviewed and negative Nose: reports: Reviewed and negative Cardiac: reports: Chest pain / pressure. denies: Palpitations, Pedal edema, Calf pain Respiratory: reports: Reviewed and negative GI: reports: Reviewed and negative : denies: Dysuria, Frequency, Incontinent, Now EGA Musculoskeletal: denies: Neck pain, Back pain Neurologic: reports: Seizure, Headache. 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), Other (she is 8-9 weeks post without complications) Psych: Depression, Anxiety, Bipolar disorder, Panic attacks, ADD/ADHD, Obsessive compulsive disorder, Eating disorder - Past Surgical History Past Surgical History: Yes Neuro: Other - Present Medications Home Medications: Ambulatory Orders Medication Instructions Recorded Confirmed Botox PRN PRN 08/16/18 Dextroamphetamine/Amphetamine 30 mg PO 08/16/18 [Adderall 30 mg Tablet] Eslicarbazepine Acetate [Aptiom] 800 mg PO 08/16/18 lamoTRIgine [LaMICtal] 25 mg PO BID 08/16/18 08/16/18 - Allergies Allergies/Adverse Reactions: Allergies Allergy/AdvReac Type Severity Reaction Status Date / Time tramadol Allergy Severe Anaphylaxis Verified 11/02/17 17:41 ketorolac [From Toradol] Allergy Intermediate Hives Verified 11/02/17 17:41 trazodone [From Desyrel] Allergy Intermediate Hives Verified 11/02/17 17:41 brivaracetam Allergy Hives Verified 11/02/17 17:41 - Social History Does the pt smoke?: No Smoking Status: Never smoker Does the pt drink ETOH?: Yes Does the pt have substance abuse?: No - Immunizations Immunizations are current?: Yes - POLST Patient has POLST: No PD ED PE NORMAL - Vitals Vital signs reviewed: Yes - General General: Alert and oriented X 3, No acute distress, Well developed/nourished - HEENT HEENT: PERRL, EOMI, Moist mucous membranes - Neck Neck: Supple, no meningeal sign - Cardiac Cardiac: RRR, No murmur, No gallop, No rub - Respiratory Respiratory: No respiratory distress, Clear bilaterally - Abdomen Abdomen: Normal bowel sounds, Soft, Non tender, Non distended - Derm Derm: Normal color, Warm and dry - Extremities Extremities: No edema - Neuro Neuro: Alert and oriented X 3, glazier structural glass 2-12 intact, No motor deficit, No sensory deficit, Normal speech Eye Opening: Spontaneous Motor: Obeys Commands Verbal: Oriented GCS Score: 15 Results - Vitals Vitals: Oxygen O2 Source Room air - Labs Labs: Laboratory Tests 08/16/18 08/16/18 02:45 02:45 WBC 8.6 RBC 4.14 L Hgb 11.5 L Hct 35.1 L MCV 84.8 MCH 27.7 MCHC 32.7 RDW 15.7 H Plt Count 274 MPV 9.0 Neut # (Auto) 4.7 Lymph # (Auto) 3.1 [place] # (Auto) 0.5 Eos # (Auto) 0.2 Baso # (Auto) 0.1 Absolute Nucleated RBC 0.01 Nucleated RBC % 0.1 Sodium 137 Potassium 3.9 Chloride 102 Carbon Dioxide 24 Anion Gap 11.0 BUN 18 Creatinine 0.7 Estimated GFR (MDRD) 102 Glucose 97 Calcium 9.2 - Rads (name of study) CTH angio Radiology: Prelim report reviewed, See rad report PD MEDICAL DECISION MAKING - ED course Complexity details: reviewed results, re-evaluated patient, considered differential, d/w patient Departure - Departure Disposition: 01 Home, Self Care Clinical Impression: Headache Condition: Good Instructions: ED Cephalgia Unspecified Follow-Up: Leah Polanco ARNP [Primary Care Provider] - Discharge Date/Time: 08/16/18 05:25
[2018-08-16] MEDS ORDERED: diphenhydrAMINE INJ 50 MG/ML VIAL IVP STA (02:52)
[2018-08-16 03:01] LABS: BASOPHILS # (AUTO) 0.1 10^3/uL (0.0-0.1); BASOPHILS % (AUTO) 0.6 %; EOSINOPHILS # (AUTO) 0.2 10^3/uL (0.0-0.7); EOSINOPHILS % (AUTO) 2.9 %; HGB - HEMOGLOBIN 11.5 g/dL (12.0-16.0); LYMPHOCYTES # (AUTO) 3.1 10^3/uL (1.5-3.5); LYMPHOCYTES % (AUTO) 35.5 %; MEAN CORPUSCULAR HEMOGLOBIN 27.7 pg (27.0-31.0); MEAN CORPUSCULAR HGB CONC 32.7 g/dL (32.0-36.0); MEAN CORPUSCULAR VOLUME 84.8 fL (81.0-99.0); MONOCYTES # (AUTO) 0.5 10^3/uL (0.0-1.0); MONOCYTES % (AUTO) 6.3 %; NEUTROPHILS # (AUTO) 4.7 10^3/uL (1.5-6.6); NEUTROPHILS % (AUTO) 54.7 %; PLT - PLATELET COUNT 274 10^3/uL (130-450); RED BLOOD COUNT 4.14 10^6/uL (4.20-5.40); RED CELL DISTRIBUTION WIDTH 15.7 % (12.0-15.0); WHITE BLOOD COUNT 8.6 x10^3/uL (4.8-10.8)
[2018-08-16] MEDS ORDERED: IOVERSOL 320 100 ML VIAL IVP ONE ×2 (03:03→03:38)
[2018-08-16 03:08] LABS: CALCIUM 9.2 mg/dL (8.5-10.3); CREATININE 0.7 mg/dL (0.4-1.0)
--- NOTE | 2018-08-16 03:58 | XRAY Report ---
Reason: chest pain Procedure Date: 08/16/2018 Accession Number: [id number] / [id number] Procedure: XR - Chest 2 View X-Ray CPT Code: 58125 FULL RESULT: EXAM: CHEST RADIOGRAPHY EXAM DATE: 08/16/2018 03:20 AM. CLINICAL HISTORY: Chest pain. COMPARISON: None. TECHNIQUE: 2 views. FINDINGS: Lungs/Pleura: No focal opacities evident. No pleural effusion. No pneumothorax. Normal volumes. Mediastinum: Heart and mediastinal contours are unremarkable. Other: None. IMPRESSION: Normal 2-view chest radiography. RADIA
--- NOTE | 2018-08-16 04:02 | CT Report ---
Reason: headache Procedure Date: 08/16/2018 Accession Number: [id number] / [id number] Procedure: CT - ANGIO HEAD W CPT Code: FULL RESULT: EXAM: CT ANGIOGRAM HEAD. CT SCAN OF THE HEAD WITHOUT AND WITH CONTRAST. EXAM DATE: 08/16/2018 03:41 AM CLINICAL HISTORY: Headache, history of AVM. COMPARISON: None. TECHNIQUE: - CT Scan Head: Using a multidetector scanner, axial images were acquired from the foramen magnum to the skull vertex prior to and following contrast administration. - CT Angiogram: Using a multidetector scanner, high-resolution axial images were acquired from the skull base through vertex following rapid infusion of intravenous contrast. Reformats: Multiplanar MIP reformats were reconstructed. Nascet criteria used for stenosis measurement. IV Contrast: [id number] 80ml. In accordance with CT protocol optimization, one or more of the following dose reduction techniques were utilized for this exam: automated exposure control, adjustment of mA and/or KV based on patient size, or use of iterative reconstructive technique. FINDINGS: NON-CONTRAST HEAD: Parenchyma: No intraparenchymal hemorrhage. No evidence of mass, midline shift, or CT findings of infarction. French-white differentiation is distinct. Extraaxial Spaces: Normal for age. No subdural or epidural collections identified. Ventricles: Normal in size and position. Sinuses and orbits: Imaged paranasal sinuses, orbits, and mastoids show no significant abnormality. Bones: Status post prior left-sided craniotomy. Other: None. POST-CONTRAST HEAD: No abnormal enhancement. CT ANGIOGRAM HEAD: Detail of peripheral vessels obscured by motion. No evidence of vascular stenosis or aneurysm. DURAL VENOUS SINUSES AND MAJOR CENTRAL VEINS: Patent. IMPRESSION: CT Head: No acute intracranial abnormality. Remote left parietal infarct. No abnormal enhancement. CTA Head: Unremarkable. RADIA
[2018-08-16 04:50] VITALS: BP 118/75
== END 2018-08-16 05:25 | disposition home or self-care (01) ==
LOC: EDUNIT# → ED 02:25
DX: R51 Headache (principal); R56.9 Unspecified convulsions; R07.9 Chest pain, unspecified
CPT/HCPCS: 36415; 70496; 71046; 80048; 85025; 96374; 99283; 99284; J1200; Q9967